=== PATIENT | female | born 1950 | race Caucasian/White ===

== ENCOUNTER 2016-07-27 22:57 | Emergency (ER) | payer OTHER ==
[~2016-07-27] VITALS: Ht 160 cm; Wt 84.7 kg
[~2016-07-27 22:57] MED LIST: ADULT ONE DAI200 MCG PO; AMLODIPINE BESYL5 MG PO; DAILY VALUE1 EACH PO; LEVO-T100 MCG PO; VITAMIN C250 M1 PO; ZESTORETIC 20-1 EAC1 PO
[2016-07-27 23:53] LABS: HEMATOCRIT 30.3 % (36.0-46.0); MCH 27.3 PG (29.0-34.0); MCHC 33.3 G/DL (30.0-36.0); MCV 81.9 FL (83-99); MEAN PLAT.VOLUME 10.3 uM^3 (9.5-12.4); PLATELET COUNT 257 K/uL (156-360); RBC DIS.WIDTH-CV 13.5 % (11.8-14.6); RBC DIS.WIDTH-SD 38.6 % (39-53); WHITE BLOOD COUNT 9.9 K/uL (4.1-10.2)
[2016-07-28 00:06] LABS: CHLORIDE 107 mEq/L (99-109); POTASSIUM 3.1 mEq/L (3.7-5.4); SODIUM 144 mEq/L (136-147)
[2016-07-28 00:08] LABS: GLUCOSE 115 mg/dL (70-99)
[2016-07-28 00:09] LABS: ANION GAP 13 MEQ/L (2-14)
[2016-07-28 00:12] LABS: GFR ESTIMATE (CALCULATED) 16 mL/min/; UREA NITROGEN (BUN) 26 mg/dL (9-23)
[2016-07-28 01:28] LABS: TOTAL BILIRUBIN 0.9 mg/dL (0.0-1.0)
[2016-07-28 01:29] LABS: ALKALINE PHOSPHATASE 51 IU/L (3-129)
[2016-07-28 01:31] LABS: DIRECT BILIRUBIN 0.3 mg/dL (0.0-0.3)
[2016-07-28 04:42] LABS: ADD MIUA? YES; BILIRUBIN NEGATIVE; BLOOD SMALL; COLOR YELLOW ((YELLOW)); GLUCOSE (STRIP) NEGATIVE; KETONES NEGATIVE; LEUKOCYTES SMALL; NITRITE NEGATIVE; PROTEIN (STRIP) NEGATIVE; SPECIFIC GRAVITY 1.008 (1.000-1.030); UROBILINOGEN 0.2 MG/DL (0.2-1.0)
[2016-07-28 04:59] LABS: BACTERIA NONE SEEN /HPF; CASTS NONE SEEN /LPF; CRYSTALS NONE SEEN; EPITHELIAL CELLS RARE /HPF; MUCUS NONE SEEN /LPF; RED BLOOD CELLS RARE /HPF (0-5); UCUL ADDED? NO; WHITE BLOOD CELLS 0-5 /HPF (0-5)
[2016-07-28 05:42] VITALS: BP 162/98
== END 2016-07-28 05:43 | disposition home or self-care (01) ==
LOC: EME 22:57
DX: R11.2 Nausea with vomiting, unspecified (principal); N28.9 Disorder of kidney and ureter, unspecified; Z88.8 Allergy status to other drugs, medicaments and biological substances; Z88.6 Allergy status to analgesic agent; I10 Essential (primary) hypertension; E03.9 Hypothyroidism, unspecified
CPT/HCPCS: 80048; 80076; 81003; 85027; 93005; 99281; 99284; J0780; J7030

== ENCOUNTER 2016-08-31 08:46 | Inpatient (IN) | payer OTHER ==
[~2016-08-31] VITALS: Ht 160 cm; Wt 73.3 kg
[~2016-08-31 08:46] MED LIST changes: +CARVEDILOL3.125 MG PO; +K-DUR10 MEQ PO; +LASIX40 MG PO; +MONTELUKAST SOD10 MG PO; +SLOW-MAG,MAG DE64 MG PO; +ZOFRAN4 MG PO
[2016-08-31 10:51] LABS: BASE EXCESS -3.5 mEq/L (-3 to +3); BICARBONATE 22.7 mEq/L (22-26); CARBOXY HGB 1.7 % (0-5); COMMENTS - BLOOD GASES A+C+; DEVICE 840; FI02 100 %; METHEMOGLOBIN 0.9 % (0-1.5); MODE NIV; PCO2 45 mm Hg (35-45); PO2 362 mm Hg (80-100); SITE RRA; pH 7.31 (7.35-7.45)
[2016-08-31 10:52] LABS: PEEP 5 CM/H20; PRES. SUPPORT 13 CM/H2O; TIDAL VOLUME 600 ML; TOTAL RESP RATE 37 resp/min
[2016-08-31 12:21] LABS: BASOPHIL COUNT 0.1 K/uL (0-0.1); EOSINOPHIL (%) 1.3 % (0-5); EOSINOPHIL COUNT 0.1 K/uL (0-0.3); HEMATOCRIT 29.7 % (36.0-46.0); IMMATURE GRANULOCYTE (%) 0.7 % (0.0-0.7); IMMATURE GRANULOCYTE COUNT 0.1 K/uL; INSTRUMENT ABS NEUTROPHIL CT 9.5 K/uL; LYMPHOCYTE COUNT 0.7 K/uL (1.0-2.8); MCH 27.8 PG (29.0-34.0); MCV 86.8 FL (83-99); MONOCYTE (%) 4.3 % (3-12); MONOCYTE COUNT 0.5 K/uL (0-0.8); NEUTROPHIL COUNT 9.5 K/uL (1.8-6.4); PLATELET COUNT 363 K/uL (156-360); RBC DIS.WIDTH-CV 14.6 % (11.8-14.6); RBC DIS.WIDTH-SD 46.1 % (39-53); RED BLOOD COUNT 3.42 M/uL (3.80-5.20)
[2016-08-31 12:32] LABS: WHITE BLOOD COUNT 10.9 K/uL (4.1-10.2)
[2016-08-31 12:35] LABS: CHLORIDE 109 mEq/L (99-109); POTASSIUM 3.9 mEq/L (3.7-5.4); SODIUM 144 mEq/L (136-147)
[2016-08-31 12:37] LABS: GLUCOSE 165 mg/dL (70-99)
[2016-08-31 12:38] LABS: ANION GAP 12 MEQ/L (2-14)
[2016-08-31 12:41] LABS: GFR ESTIMATE (CALCULATED) 16 mL/min/
[2016-08-31 12:42] LABS: UREA NITROGEN (BUN) 23 mg/dL (9-23)
[2016-08-31 12:43] LABS: CREATINE KINASE 59 IU/L (1-294)
[2016-08-31 12:44] LABS: TROP-I INTERPRETATION NEGATIVE; TROPONIN-I 0.03 ng/mL (0.0-0.30)
[2016-08-31] MEDS ORDERED: NORVASC5 MG PO (13:44)
[2016-08-31 17:28] VITALS: BP 133/66
[2016-08-31 18:39] LABS: TROP-I INTERPRETATION NEGATIVE; TROPONIN-I 0.16 ng/mL (0.0-0.30)
[2016-08-31 19:15] VITALS: BP 128/73
[2016-08-31 22:29] VITALS: BP 128/74
[2016-08-31 23:10] VITALS: BP 117/66
[2016-09-01 01:41] LABS: TROP-I INTERPRETATION NEGATIVE; TROPONIN-I 0.17 ng/mL (0.0-0.30)
[2016-09-01 04:51] VITALS: BP 118/76
[2016-09-01 05:42] LABS: URIC ACID 7.6 mg/dL (3.1-9.2)
[2016-09-01 07:50] LABS: INTACT PARATHYROID HORMONE 154 pg/mL (10-69)
[2016-09-01 08:00] VITALS: BP 126/60
[2016-09-01 08:53] LABS: ANION GAP 12 MEQ/L (2-14); CHLORIDE 104 MEQ/L (99-109); GFR ESTIMATE (CALCULATED) 17 mL/min/; POTASSIUM 3.3 MEQ/L (3.7-5.4); SODIUM 143 MEQ/L (136-147); UREA NITROGEN (BUN) 25 mg/dL (9-23)
[2016-09-01 09:04] LABS: GLUCOSE 105 mg/dL (70-99)
[2016-09-01 11:37] VITALS: BP 122/73
[2016-09-01 15:28] VITALS: BP 139/84
[2016-09-01 18:52] VITALS: BP 125/71
[2016-09-02 00:46] VITALS: BP 121/69
[2016-09-02 03:52] VITALS: BP 122/72
[2016-09-02 06:00] LABS: ANION GAP 9 MEQ/L (2-14); CHLORIDE 101 MEQ/L (99-109); GFR ESTIMATE (CALCULATED) 14 mL/min/; GLUCOSE 91 mg/dL (70-99); POTASSIUM 3.3 MEQ/L (3.7-5.4); SAMPLE HEMOLYSIS CHECK 0; SAMPLE ICTERIC CHECK 0; SAMPLE LIPEMIA CHECK 0; SODIUM 138 MEQ/L (136-147); UREA NITROGEN (BUN) 31 mg/dL (9-23)
[2016-09-02] MEDS ORDERED: LASIX20 MG PO (08:02)
[2016-09-02 08:15] VITALS: BP 128/80
== END 2016-09-02 09:55 | disposition home or self-care (01) | DRG 292 ==
LOC: OPR 08:46 → EME 08:46 → OPR 09:00 → EDSTATUS 09:00 → EDOF 14:52 → 4EAST 14:52
PROVIDERS: Emergency Medicine; Internal Medicine; Internal Medicine Nephrology
DX: I13.0 Hypertensive heart and chronic kidney disease with heart failure and stage 1 through stage 4 chronic kidney disease, or unspecified chronic kidney disease (principal); N18.4 Chronic kidney disease, stage 4 (severe); I50.9 Heart failure, unspecified; E66.9 Obesity, unspecified; D63.1 Anemia in chronic kidney disease; R09.02 Hypoxemia; Z87.891 Personal history of nicotine dependence; I44.7 Left bundle-branch block, unspecified; E03.9 Hypothyroidism, unspecified; M06.9 Rheumatoid arthritis, unspecified; Z68.32 Body mass index [BMI] 32.0-32.9, adult
CPT/HCPCS: 36415; 36600; 71010; 80048; 80069; 82550; 82803; 83735; 83880; 83970; 84443; 84484; 84550; 85025; 93005; 93306; 94002; 99281; 99285; J1940; J3010

== ENCOUNTER → 2017-02-09 | Outpatient (CLI) | payer OTHER ==
[~2017-02-09] MED LIST changes: +LASIX20 MG PO; +NORVASC5 MG PO
== END | disposition home or self-care (01) ==
LOC: RES 10:34
DX: J98.8 Other specified respiratory disorders (principal); R94.2 Abnormal results of pulmonary function studies
CPT/HCPCS: 94060; 94726; 94729

== ENCOUNTER 2017-02-17 19:02 | Emergency (ER) | payer OTHER ==
[~2017-02-17] VITALS: Ht 165.1 cm; Wt 73.4 kg
[2017-02-17 19:30] LABS: MCH 29.5 PG (29.0-34.0); MCHC 32.9 G/DL (30.0-36.0); MCV 89.7 FL (83-99); PLATELET COUNT 304 K/uL (156-360); RBC DIS.WIDTH-CV 12.8 % (11.8-14.6); RBC DIS.WIDTH-SD 41.8 % (39-53); WHITE BLOOD COUNT 7.8 K/uL (4.1-10.2)
[2017-02-17 19:44] LABS: CHLORIDE 106 mEq/L (99-109); POTASSIUM 3.7 mEq/L (3.7-5.4); SODIUM 145 mEq/L (136-147)
[2017-02-17 19:46] LABS: GLUCOSE 109 mg/dL (70-99)
[2017-02-17 19:47] LABS: ANION GAP 10 MEQ/L (2-14)
[2017-02-17 19:49] LABS: GFR ESTIMATE (CALCULATED) 25 mL/min/
[2017-02-17 19:50] LABS: UREA NITROGEN (BUN) 25 mg/dL (9-23)
[2017-02-17 20:27] LABS: ADD MIUA? YES; BILIRUBIN NEGATIVE; BLOOD NEGATIVE; COLOR YELLOW ((YELLOW)); GLUCOSE (STRIP) NEGATIVE; KETONES NEGATIVE; LEUKOCYTES LARGE; NITRITE NEGATIVE; PROTEIN (STRIP) NEGATIVE; SPECIFIC GRAVITY 1.014 (1.000-1.030); UROBILINOGEN 0.2 MG/DL (0.2-1.0)
[2017-02-17 20:31] LABS: BACTERIA NONE SEEN /HPF; EPITHELIAL CELLS RARE /HPF; HYALINE CASTS 0-5 /LPF; MUCUS TRACE /LPF; RED BLOOD CELLS 0-5 /HPF (0-5); UCUL ADDED? YES; WHITE BLOOD CELLS TNTC /HPF (0-5)
[2017-02-17] MEDS ORDERED: KEFLEX500 MG PO (21:37)
[2017-02-17] MEDS ORDERED: COMPAZINE10 MG PO (21:37)
[2017-02-17 21:56] VITALS: BP 139/69
== END 2017-02-17 21:59 | disposition home or self-care (01) ==
LOC: EME 19:02
PROVIDERS: Emergency Medicine
DX: R51 Headache (principal); R42 Dizziness and giddiness; N39.0 Urinary tract infection, site not specified; E03.9 Hypothyroidism, unspecified; I10 Essential (primary) hypertension
CPT/HCPCS: 70450; 80048; 81003; 85027; 87086; 99281; 99285; J0780; J7030; J8540